=== PATIENT | male | born 1935 | race Caucasian/White ===

== ENCOUNTER 2020-08-18 07:30 | Day surgery (SDC) | payer MEDICARE ==
[~2020-08-18] VITALS: Ht 182.9 cm; Wt 82.7 kg
[~2020-08-18 07:30] MED LIST: ASPIR-LOW81 MG PO; CRESTOR20 MG PO; FLOMAX0.4 MG PO; FLOVENT DISKUS50 MCG INH; FOLIC ACID1 MG PO; HYDROCHLOROTH12.5 MG PO; PLAVIX75 MG PO; RANEXA500 MG PO; TENORMIN50 MG PO; VASOTEC20 MG PO
[2020-08-18] MEDS ORDERED: IBUPROFEN600 MG PO (10:34)
[2020-08-18] MEDS ORDERED: ACETAMINOPHEN500 MG PO (10:34)
[2020-08-18] MEDS ORDERED: OXYCODON-ACETA1 EAC2 PO (10:34)
--- NOTE | 2020-08-20 07:58 | OR ---
[facility] [address], [place] [address] Signed DATE OF OPERATION: 08/18/2020 SURGEON: Marquis Clark MD PREOPERATIVE DIAGNOSES: 1. Longstanding chronic left groin tinea cruris. 2. 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 POSTOPERATIVE DIAGNOSES: 1. Longstanding chronic left groin tinea cruris. 2. 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 PROCEDURES: 1. Wide resection of left groin squamous cell carcinoma, 14 x 18 cm. 2. Partial closure and application of wound VAC device. ANESTHESIA: Spinal, [place]. INDICATIONS: This 84-year-old white man is a patient of Dr. Kvng Ferrera. The patient is known to have longstanding tinea cruris bilaterally. Consultation with Dr. Alfaro, ultrasound applications specialist recommended terbinafine for bilateral tinea crura, but it had no beneficial effect. Biopsies performed in the left groin area for fungating soft tissue on July 01, 2020, which confirmed squamous cell carcinoma. Interpretation of pathology was by Dr. Araiza of [facility]. 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 scan performed at [facility] in December of 2019, showing no sign of regional adenopathy. The patient was initially referred to Dr. Irvin Soriano, who recommended go to [place] for definitive treatment. The patient did not want to travel and essentially self-referred for evaluation. He was found to have an exuberant fungating soft tissue mass of the left groin area extending onto the left hemiscrotum and posteriorly to some degree. The patient does have numerous medical problems including prior history of cardiac disease and so on. He lives alone and is . I have recommended wide resection of the offending problem with partial closure and probably application of wound VAC device ultimately to undergo skin grafting. A Electronically Signed By: MARQUIS CLARK MD 08/20/20 0758 PATIENT NAME: JANET JOHNSON JR OPERATIVE REPORT DATE OF : 33 REPORT #: [id number] PHYSICIAN: MARQUIS CLARK MD PCP: KVNG FERRERA MD REPORT IS CONFIDENTIAL AND NOT TO BE RELEASED WITHOUT AUTHORIZATION [facility] [address] [place] [address] Signed rotational flap for closure is a consideration, but under the circumstances, I think this may be the simplest most effective way for complete resection as well as definitive closure. The patient was not noted to have metastatic disease regionally or elsewhere. Special note, the patient was treated with Diflucan for the preceding two weeks, but will benefit on the contralateral groin, which has findings typical of tinea cruris, but without any neoplastic change. Additional treatment of that site will be required in the future as well. FINDINGS: The verruca form abnormality was quite obviously malignant on gross appearance. There is no sign of underlying adenopathy and full-thickness excision of skin and subcutaneous fat (Camper's fascia) was undertaken. Partial closure of the scrotum medially and the perineum inferiorly allowed for diminishment of the size of wound, for which the wound VAC device will be applied. A good seal with wound VAC was noted at completion of procedure. DESCRIPTION OF PROCEDURE: The patient was brought to the operating room, given a spinal anesthetic. His left leg was placed into a somewhat frog-leg configuration with support laterally and pressure padding. Photographs were taken. The genitalia were retracted medially with pink tape exposing well the area in question. The area was clipped and prepared with a chlorhexidine solution and draped sterilely. A margin of about 1 cm or more was made with a marker to guide excision. Incision was undertaken with a #15 blade through the dermis and using electrocautery wide resection undertaken, excising generous subcutaneous tissue, particularly in the areas with the largest amount of tumor burden. Entry into the left hemiscrotum was noted initially. The specimen was resected fully and measured approximately 14 x 9 cm. The specimen was oriented with sutures, a short stitch superior and long stitch laterally. The left hemiscrotal area was secured with interrupted 2-0 Vicryl to close the space created into the left hemiscrotum, which showed a normal-appearing testicle. Closure posteriorly was undertaken with interrupted 2-0 Vicryl in deep dermal layer as well as medially in the scrotal layer to diminish the size of defect, for which a wound VAC would be applied and subsequent skin grafting. Ultimately, a wound VAC was cut to appropriate size and applied in the usual way and providing a good strong seal. BLOOD LOSS: Electronically Signed By: MARQUIS CLARK MD 08/20/20 0758 PATIENT NAME: JANET JOHNSON OPERATIVE REPORT DATE OF : 34 REPORT #: [id number] PHYSICIAN: MARQUIS CLARK MD PCP: KVNG FERRERA MD REPORT IS CONFIDENTIAL AND NOT TO BE RELEASED WITHOUT AUTHORIZATION [address] [address] Signed Minimal. COMPLICATIONS: None. COUNTS: Sponge, needle, and instrument counts reported as correct x3. Marquis Clark MD JM/MODL /[id number] cc: Kvng Ferrera MD Copies: KVNG FERRERA MD ~ Electronically Signed By: MARQUIS CLARK MD 08/20/20 0758 PATIENT NAME: JANET JOHNSON OPERATIVE REPORT DATE OF : 34 REPORT #: [id number] PHYSICIAN: MARQUIS CLARK MD PCP: KVNG FERRERA MD REPORT IS CONFIDENTIAL AND NOT TO BE RELEASED WITHOUT AUTHORIZATION
--- NOTE | 2020-08-26 16:08 | PATH ---
[facility] [address], [place] [address] Signed SPECIMEN(S): A LEFT GROIN, MEDIAL THIGH SPECIMEN SOURCE: A. LEFT GROIN, MEDIAL THIGH CLINICAL HISTORY: Left groin and medial thigh skin cancer (long stitch lateral; short stitch superior). 84 year old man with left groin lesion initially treated with topical antifungals and subsequently biopsied as "verrucous cell carcinoma". FINAL PATHOLOGIC DIAGNOSIS: Skin, left groin/medial thigh, excision: - Extramammary Paget disease. - Tumor present at 12-6 o'clock and 9-12 o'clock margins. - Deep margins negative for tumor. COMMENT: Sections demonstrate an intraepidermal proliferation of malignant epithelioid cells growing in nests and sheets with areas of intraepidermal papillary formation. The tumor cells extend from the main tumor mass through the adjacent epidermis with a pagetoid spread. Dermal invasion or an underlying neoplastic process is not identified. Immunohistochemical stains (with appropriately staining controls) were performed. The tumor cells are positive for CK7, MADISON, GCDFP-15, and polyclonal CEA and are negative for Melan-A, CDX2, CK20, and p40. Overall, the combined morphologic and immunophenotypic profile is compatible with Extramammary Paget disease. As part of [facility]' Quality Improvement Program, this case was reviewed by another member of our pathology staff. NAL:cml:C NR MICROSCOPIC EXAMINATION: Histologic sections of all submitted blocks are examined by light microscopy. These findings, together with the gross examination, support the pathologic diagnosis. GROSS DESCRIPTION: The specimen, labeled "RT," and designated on the requisition "left groin and medial thigh skin cancer," is received in formalin and consists of an oriented skin excision with a short stitch marking PATIENT NAME: JANET OJHNSON JR PATHOLOGY DATE OF : 34 REPORT #: [id number] PHYSICIAN: NOEMI PATHOLOGY PCP: KVNG FRAIRE MD REPORT IS CONFIDENTIAL AND NOT TO BE RELEASED WITHOUT AUTHORIZATION [facility] [address], [place] [address] Signed the superior aspect, and a long stitch marking the lateral aspect (13.8 cm superior to inferior, 8.8 cm medial to lateral, and excised to a depth of 1.2 cm). There is a pink-carballo to brown-carballo nodular lesion on the epidermal surface (9.2 x 7.4 x 0.8 cm) and the remaining epidermal surface shows pink-carballo to white-carballo and hypopigmented skin. The superior stitch is designated 12 o'clock and the specimen is inked as follows: Blue = 12 o'clock to 3 o'clock Red = 3 o'clock to 6 o'clock Green = 6 o'clock to 9 o'clock Black = 9 o'clock to 12 o'clock [place] = Deep The mass is sectioned to reveal a brown-carballo to white-carballo, firm to friable cut surface and is grossly located 0.4 cm from the nearest (9 o'clock) margin, 0.6 cm from the nearest deep margin, and more than 1.0 cm from the remaining inked margins. The remaining cut surface shows pink-carballo to white-carballo skin with underlying yellow-carballo fatty tissue. Hat Lining Paster sections are submitted as follows: Cassette Summary: (A1-A2) Mass to nearest 9 o'clock and deep margins (A3-A5) 12 o'clock to 3 o'clock margin, shaved, en face (A6-A7) 3 o'clock to 6 o'clock margin, shaved, en face (A8) Remaining 6 o'clock to 9 o'clock margin, shaved, en face (A9-A10) 9 o'clock to 12 o'clock margin, shaved, en face (A11-A14) Mass with underlying soft tissue (A15-A16) Mass with adjacent hypopigmented skin AC (under the direct supervision of a pathologist) The Gross Description was prepared using a voice recognition system. The report was reviewed for accuracy; however, sound-alike word errors, addition and/or deletions may occur. If there is any question about this report, please contact Client Services. ADDITIONAL NOTES: Immunohistochemical and/or in situ hybridization studies were performed on this case with the appropriate positive controls that react as expected. This test was developed and its performance characteristics determined by [facility]. It has not been cleared or approved by the U.S. Food and Drug Administration. The FDA has determined that such clearance or approval is not necessary. This test is used for clinical purposes. It should not be regarded as investigational or for research. [facility] is certified under the PATIENT NAME: JANET JOHNSON PATHOLOGY DATE OF : 34 REPORT #: [id number] PHYSICIAN: NOEMI PATHOLOGY PCP: KVNG FRAIRE MD REPORT IS CONFIDENTIAL AND NOT TO BE RELEASED WITHOUT AUTHORIZATION [address] [address] Signed Clinical Laboratory Improvement Amendments of 1988 (CLIA) as qualified to perform high complexity clinical laboratory testing. PERFORMING LABORATORY: The technical component was performed by [facility], [address] [place] [id number] (Procedure Tech: Cathy Cruz MD; CLIA# [id number]). Professional interpretation was performed by [facility], [facility], [address] [place] [address] (CLIA# [id number]). Diagnostician: Allison Liang MD Pathologist Electronically Signed 08/26/2020 Copies: ~ PATIENT NAME: JANET JOHNSON ELISA PATHOLOGY DATE OF : 34 REPORT #: [id number] PHYSICIAN: NOEMI PATHOLOGY PCP: KVNG FRAIRE MD REPORT IS CONFIDENTIAL AND NOT TO BE RELEASED WITHOUT AUTHORIZATION
== END 2020-08-18 15:20 | disposition home or self-care (01) ==
LOC: DS 07:30
PROVIDERS: ATTEND Surgery
PROC: 0HBJXZZ Excision of Left Upper Leg Skin, External Approach (ICD-10-PCS; principal; 2020-08-18 08:15)
DX: C44.599 Other specified malignant neoplasm of skin of other part of trunk (principal); B35.6 Tinea cruris; I25.2 Old myocardial infarction; K21.9 Gastro-esophageal reflux disease without esophagitis; G43.909 Migraine, unspecified, not intractable, without status migrainosus; Z79.899 Other long term (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; Z79.82 Long term (current) use of aspirin; Z79.02 Long term (current) use of antithrombotics/antiplatelets; Z95.1 Presence of aortocoronary bypass graft; Z87.891 Personal history of nicotine dependence
CPT/HCPCS: 00400; 88305; 88341; 88342; J0690; J2001; J2250; J2704; J7121

== ENCOUNTER 2020-09-12 14:10 | Emergency (ER) | payer MEDICARE ==
[~2020-09-12] VITALS: Ht 182.9 cm; Wt 83.9 kg
[~2020-09-12 14:10] MED LIST changes: +ACETAMINOPHEN500 MG PO; +IBUPROFEN600 MG PO; +OXYCODON-ACETA1 EAC2 PO
[2020-09-12] MEDS ORDERED: ATORVASTATIN CA80 MG PO (14:54)
[2020-09-12] MEDS ORDERED: CLOPIDOGREL75 MG PO (14:54)
== END 2020-09-12 15:11 | disposition home or self-care (01) ==
LOC: ED 14:10
DX: Z48.817 Encounter for surgical aftercare following surgery on the skin and subcutaneous tissue (principal)

== ENCOUNTER 2020-11-17 11:23 | Emergency (ER) | payer MEDICARE ==
[~2020-11-17] VITALS: Ht 182.9 cm; Wt 79.4 kg
[~2020-11-17 11:23] MED LIST changes: +ATORVASTATIN CA80 MG PO; +CLOPIDOGREL75 MG PO
--- NOTE | 2020-11-17 12:10 | EKG ---
[facility] [address] [facility] [place] [address] Signed Sinus tachycardia with premature atrial complexes with aberrant conduction Left bundle branch block Abnormal ECG When compared with ECG of 17-AUG-2020 14:39, Significant changes have occurred Confirmed by ELSIE SOL MD ([id number]) on 11/17/2020 12:10:04 PM Electronically Signed By: ELSIE SOL MD 11/17/20 1210 PATIENT NAME: JANET JOHNSON JR Electrocardiogram DATE OF : 34 PHYSICIAN: ELSIE SOL MD REPORT #: [id number] REPORT IS CONFIDENTIAL AND NOT TO BE RELEASED WITHOUT AUTHORIZATION
== END 2020-11-17 17:07 | disposition short-term general hospital (02) ==
LOC: ED 11:23
DX: I21.4 Non-ST elevation (NSTEMI) myocardial infarction (principal); J18.9 Pneumonia, unspecified organism; Z20.822 Contact with and (suspected) exposure to COVID-19; E78.00 Pure hypercholesterolemia, unspecified; Z87.891 Personal history of nicotine dependence; Z88.8 Allergy status to other drugs, medicaments and biological substances; Z79.899 Other long term (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; Z79.82 Long term (current) use of aspirin
CPT/HCPCS: 71045; 80053; 83735; 83880; 84484; 85025; 85610; 93005; 93010; 96374; 96375; 99285-25; C9803; J0456; J0696; J1650; J7060; U0003

== ENCOUNTER 2021-03-27 15:58 | Emergency (ER) | payer MEDICARE ==
[~2021-03-27] VITALS: Ht 182.9 cm; Wt 79.4 kg
--- OUTSIDE RECORDS SUMMARY | 2021-03-27 16:00 | XMS ---
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 \F\ [facility] PHONE: [phone] YEE [facility] 08/08/2018-Current PHONE: [phone] Hugo has no Care Guidelines for this patient. E.DAdriano VISIT COUNT (12 MO.) [address] Darion Russell TOTAL 4 NOTE: Visits indicate total known visits. 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 TYPE: Cardiology DIAGNOSES: - Shortness of breath - NSTEMI - Presence of aortocoronary bypass graft - Hyperlipidemia, unspecified - Non-ST elevation (NSTEMI) myocardial infarction - Presence of coronary angioplasty implant and graft - Ischemic cardiomyopathy - Essential (primary) hypertension - Atherosclerosis of coronary artery bypass graft(s), unspecified, with other forms of angina pectoris [email or web address]
[2021-03-27] MEDS ORDERED: CARVEDILOL12.5 MG PO (16:34)
[2021-03-27] MEDS ORDERED: LIPO-FLAVONOID1 EACH PO (16:35)
[2021-03-27] MEDS ORDERED: NITROGLYCERIN12 GM NAS (16:37)
[2021-03-27] MEDS ORDERED: PLAVIX75 MG PO (16:37)
[2021-03-27] MEDS ORDERED: ISOSORBIDE MONO30 MG PO (16:37)
--- NOTE | 2021-03-28 20:11 | EKG ---
[facility] [address] [facility] [place] [address] Signed Sinus rhythm with 1st degree AV block Left bundle branch block Abnormal ECG Confirmed by ELSIE SOL MD ([id number]) on 03/28/2021 8:11:35 PM Electronically Signed By: ELSIE SOL MD 03/28/212010 PATIENT NAME: JANET JOHNSON JR Electrocardiogram DATE OF : 34 PHYSICIAN: ELSIE SOL MD REPORT #: [id number] REPORT IS CONFIDENTIAL AND NOT TO BE RELEASED WITHOUT AUTHORIZATION
== END 2021-03-27 21:29 | disposition home or self-care (01) ==
LOC: ED 15:58
DX: R55 Syncope and collapse (principal); E78.00 Pure hypercholesterolemia, unspecified; Z87.891 Personal history of nicotine dependence; Z88.8 Allergy status to other drugs, medicaments and biological substances; Z79.899 Other long term (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; Z79.82 Long term (current) use of aspirin; Z85.828 Personal history of other malignant neoplasm of skin
CPT/HCPCS: 71045; 71250; 80053; 81001; 83735; 84484; 85025; 93005; 93010; 96365; 99285-25; J3475; J7030

== ENCOUNTER 2021-05-29 09:17 | Emergency (ER) | payer MEDICARE ==
[~2021-05-29] VITALS: Ht 182.9 cm; Wt 79.4 kg
[~2021-05-29 09:17] MED LIST changes: +CARVEDILOL12.5 MG PO; +ISOSORBIDE MONO30 MG PO; +LIPO-FLAVONOID1 EACH PO; +NITROGLYCERIN12 GM NAS
--- OUTSIDE RECORDS SUMMARY | 2021-05-29 09:20 | XMS ---
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 \F\ [facility] PHONE: [phone] KVNG FRAIRE [facility] 03/29/2021-Current PHONE: [phone] HARISH VITALE Nurse Practitioner: Gerontology Current PHONE: [phone] NARINDER MARRERO Internal Medicine Current PHONE: [phone] Hugo has no Care Guidelines for this patient. [place] VISIT COUNT (12 MO.) 1 [facility] 4 [facility] TOTAL 5 NOTE: Visits indicate total known visits. 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 11/23/2020 12:30 [facility] TYPE: Emergency DIAGNOSES: - Other nonspecific abnormal finding of lung field - Viral pneumonia, unspecified - Shortness of Breath - Pulmonary hypertension, unspecified - Pneumonia, unspecified organism - Hypoxemia - Weakness 11/17/2020 11:23 [facility] [place] TYPE: Emergency COMPLAINT: - WEAKNESS, SOB DIAGNOSES: - Non-ST elevation (NSTEMI) myocardial infarction - care home (current) use of aspirin - Weakness - Other prison (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 - Pneumonia, unspecified organism - Pure hypercholesterolemia, unspecified - Personal history of nicotine dependence - Allergy status to other drugs, medicaments and biological substances 09/12/2020 14:11 [facility] TYPE: Emergency COMPLAINT: - WOUND CARE DIAGNOSES: - Encounter for surgical aftercare following surgery on the skin and subcutaneous tissue INPATIENT VISIT TRACKING (12 MO.) 11/17/2020 18:[facility] TYPE: Cardiology DIAGNOSES: - Shortness of breath - NSTEMI - Presence of aortocoronary bypass graft - Hyperlipidemia, unspecified - Non-ST elevation (NSTEMI) myocardial infarction - Presence of coronary angioplasty implant and graft - Ischemic cardiomyopathy - Essential (primary) hypertension - Atherosclerosis of coronary artery bypass graft(s), unspecified, with other forms of angina pectoris [id number]
[2021-05-29] MEDS ORDERED: HYDROCHLOROTHIA25 MG PO (13:39)
--- NOTE | 2021-05-30 17:13 | EKG ---
[facility] [address] [facility] [place] [address] Signed Sinus rhythm with 1st degree AV block with premature atrial complexes Left bundle branch block Abnormal ECG When compared with ECG of 27-MAR-2021 16:01, premature atrial complexes are now present Questionable change in QRS axis T wave inversion now evident in Inferior leads T wave inversion now evident in Lateral leads Confirmed by ELSIE SOL MD ([id number]) on 05/30/2021 5:12:49 PM Electronically Signed By: ELSIE SOL MD 05/30/21 1713 PATIENT NAME: JANET JOHNSON Electrocardiogram DATE OF : 34 PHYSICIAN: ELSIE SOL MD REPORT #: [id number] REPORT IS CONFIDENTIAL AND NOT TO BE RELEASED WITHOUT AUTHORIZATION
== END 2021-05-29 14:21 | disposition home or self-care (01) ==
LOC: ED 09:17
DX: D64.9 Anemia, unspecified (principal); I50.9 Heart failure, unspecified; E78.00 Pure hypercholesterolemia, unspecified; Z87.891 Personal history of nicotine dependence; Z88.8 Allergy status to other drugs, medicaments and biological substances; Z79.899 Other long term (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; Z79.82 Long term (current) use of aspirin
CPT/HCPCS: 70450; 71045; 80053; 81001; 83735; 84484; 85025; 93005; 93010; 99285-25; J7040

== ENCOUNTER 2021-06-03 11:20 | Inpatient (IN) | payer MEDICARE ==
[~2021-06-03] VITALS: Ht 182.9 cm; Wt 83.8 kg
[~2021-06-03 11:20] MED LIST changes: +HYDROCHLOROTHIA25 MG PO
--- OUTSIDE RECORDS SUMMARY | 2021-06-03 11:24 | XMS ---
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 \F\ [facility] PHONE: [phone] KVNG FRAIRE [facility] 03/29/2021-Current PHONE: [phone] HARISH VITALE Nurse Practitioner: Gerontology Current PHONE: [phone] NARINDER MARRERO Internal Medicine Current PHONE: [phone] Hugo has no Care Guidelines for this patient. iTerra VISIT COUNT (12 MO.) 1 [facility] 5 [facility] [place] TOTAL 6 NOTE: Visits indicate total known visits. 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 03/27/2021 15:59 [facility] TYPE: Emergency COMPLAINT: - LOC DIAGNOSES: - Syncope and collapse - Other 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 medical 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 (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 - Personal history of nicotine dependence - Personal history of other malignant neoplasm of skin - Pure hypercholesterolemia, unspecified - Allergy status to other drugs, medicaments and biological substances - 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 11/23/2020 12:30 [facility] TYPE: Emergency DIAGNOSES: - Other nonspecific abnormal finding of lung field - Viral pneumonia, unspecified - Shortness of Breath - Pulmonary hypertension, unspecified - Pneumonia, unspecified organism - Hypoxemia - Weakness 11/17/2020 11:23 [facility] TYPE: Emergency COMPLAINT: - WEAKNESS, SOB DIAGNOSES: - Non-ST elevation (NSTEMI) myocardial infarction - 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 TYPE: Cardiology DIAGNOSES: - Shortness of breath - NSTEMI - Presence of aortocoronary bypass graft - Hyperlipidemia, unspecified - Non-ST elevation (NSTEMI) myocardial infarction - Presence of coronary angioplasty implant and graft - Ischemic cardiomyopathy - Essential (primary) hypertension - Atherosclerosis of coronary artery bypass graft(s), unspecified, with other forms of angina pectoris [email or web address]
--- NOTE | 2021-06-03 15:10 | NUR ---
REPORT RECEIVED FROM SILVANO BAHENA. AWAITING PTS ARRIVAL FROM FLOOR.
--- NOTE | 2021-06-03 15:30 | NUR ---
NOTIFIED BY DR MCCOLLUM PT HAS HAD FREQUENT FALLS AND SEVERAL TRIPS TO THE ER. HE DOES NOT FEEL SAFE AT HOME AND WOULD LIKE ADMISSION TO [facility].
[2021-06-03] MEDS ORDERED: POTASSIUM CHLO20 ME1 PO (15:54)
--- NOTE | 2021-06-03 15:56 | NUR ---
PT ARRIVED TO MED/SURG FLOOR. PT TRANSFERED TO BED WITH 4 PERSON ASSIST. PT STATES HE IS UNABLE TO TRANSFER SELF. PT REPORTS NEED TO VOID. VOIDS 200ML IN TO URINAL WHILE RESTING IN BED. PT STATES HE IS NOT STRONG ENOUGH TO STAND AT THIS TIME. PT DENIES PAIN AND NAUSEA. DOMONIQUE, CASE MANAGEMENT TO BEDSIDE TO MEET WITH PT. PT ALERT AND ORIENTED AND ANSWERING QUESTIONS APPROPRIATLY. 1500 [facility] LABS STILL DUE. 10ML WASTE FROM LEFT AC IV AND 5ML BLOOD DRAW. LABS SENT PER MD ORDER. ASSESSMENT DONE: PT ORIENTED TO ALL, REPORTS NUMBNESS AND TINGLING IN FEET PER BASELINE STATING "IT CAME ALONG 5 YEARS AGO." WEAKNESS REMAINS IN LEG AND ARMS. PT ABLE TO LIFT LEGS OFF OF BED. STRONG JANET AND PLANTAR FLEXTION NOTED. CRACKELS NOTED THROUGHOUT LUNGS. PT DENIES COUGH OR SPUTUM PRODUCTION. PROMINANT HEART MURMUR HEARD. PT STATES BASELINE. +3 PITTING EDEMA IN BILATERAL LEGS (KNEES TO ANKLES), +4 PITTING EDEMA IN FEET. +1 PITTING EDEMA IN UPPER LEGS (KNEES TO HIPS). SKIN VERY PALE, TAUGHT IN PLACES (FEET AND KNEES). MULTIPLE BRUISES OVER ARMS. ABRAISONS TO BACK OF HEAD X2 NOTED: 1. SCAP BEHIND RIGHT EAR MEASURING 2.5CM BY 1CM, DRY, INTACT, NO DRESSING 2. SCAP TO POSTERIOR SCALP MEASURING 3CM BY 0.5CM, DRY, INTACT, NO DRESSING 3. OLD SKIN TEAR NOTED TO RIGHT MID FORARM, MEASURING 2CM BY 3CM, DRY, INTACT, NO DRESSING. 4. BURISES OVER ENTIRETY OF BILATERAL ARMS. 5. BRUISE MEASURING 3CM CIRCUMFRENTIALLY TO MIDLINE MID BACK. 6. BRUISE TO LOWER NECK BETWEEN SHOULDER BLADES MEASURING 3CM BY 2CM. 7. WOUND NOTED TO LEFT GROIN, LEAKING WHITE FLUID, WOUND MEASURES 4CM BY 3CM. PT STATES THIS WOUND IS "FROM RADIATION" AND HE SEES DR. ASHTON FOR "A MASS IN MY GROIN. WOUND CLEAND WITH WATER. WOUND BASE WHITE WITH SMALL AMOUNTS OF GRANULATION TISSUE. THIS RN REMAIN IN ROOM WITH PT FOR EVALUATION AND ADMISSION INTAKE. CALL LIGHT USE INSTRUCTION GIVEN. PT DEMONSTRATES UNDERSTANDING. BED RAILS UP.
--- NOTE | 2021-06-03 16:10 | NUR ---
PT ARRIVED TO FLOOR. IN AND SPOKE WITH PT. HE STATES HE HAD SURGERY APPROX. IN OCT FOR MASS IN HIS GROIN. HE SPENT 2 MONTHS IN REHAB AND DISCHARGED TO HOME IN JANUARY. STATES HE HAS REMAINED WEAK AND UNSTEADY SINCE THIS TIME. HE LIVES ALONE AND HAS ATTEMPTED TO REMAIN INDEPENDENT BUT IS UNABLE TO DO SO. HE LIVES IN A 1 STORY HOME, WITH 0 STEPS. 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 HE USES A 4WWW, SHOWER CHAIR, AND A WC AT TIMES. DR FRAIRE IS HIS PCP AND HE USES [facility] FOR HIS PHARMACY. HE STATES HE HAS MADE ARRANGEMENT TO MOVE INTO [facility]. HE STATES THIS HAS BEEN PUT ON HOLD. HE WOULD LIKE PLACEMENT AT [facility], INFORMED THEY ARE NOT TAKING PTS AT THIS TIME. HE IS ON A MANAGED MEDICARE AND I [facility]EV[facility] ARE THE ONLY SNFS IN NETWORK IN THIS AREA. HE WOULD PREFER [facility]. ATTEMPTED TO CALL GALLO AND SHE HAS GONE HOME. CHART FAXED: FACE SHEET, ER NOTE, H&P, MEDICATION LIST, AND -COVID TEST WITH DATES OF VACCINATION OF MODERNA. CALLED AND SPOKE WITH ANTOINETTE AND PATTIE FROM [facility]. PT WAS TO BE EVALUATED TOMORROW. ROOM WILL NOT BE READY FOR AT LEAST 1 WEEK AND THEY WOULD PREFER HE GO TO REHAB FOR STRENGTHENING PRIOR TO ADMISSION.
[2021-06-03] MEDS ORDERED: FUROSEMIDE20 MG PO (16:45)
[2021-06-03] MEDS ORDERED: DEXILANT30 MG PO (16:45)
[2021-06-03] MEDS ORDERED: AMLODIPINE BESYL5 MG PO (16:45)
--- NOTE | 2021-06-03 16:59 | NUR ---
ADMISSION INTAKE COMPLETED. PHARMACIST TO BEDSIDE TO REVIEW MEDICATIONS WITH PT. ORDERED MEDICATIONS GIVEN. DINNER ORDER PLACED. PT RESTING IN BED. CONTINUES TO DENY PAIN AND NAUSEA. MESSAGE SENT TO MD TO INQUIRE IF FLUID RESTRICION IS NEEDED. NO ADDITIONAL REQUESTS OR COMPLAINTS. CALL LIGHT WITHIN REACH. BED RAILS UP.
[2021-06-03] MEDS ORDERED: PANTOPRAZOLE SO40 MG PO (17:20)
[2021-06-03] MEDS ORDERED: VITAMIN C500 M1 PO (17:22)
[2021-06-03] MEDS ORDERED: IRON325 M1 PO (17:23)
--- NOTE | 2021-06-03 17:24 | NUR ---
MED REC COMPLETE
--- NOTE | 2021-06-03 17:32 | NUR ---
THIS RN TO ROOM TO CHECK ON PT. DINNER ARRIVED. HEAD OF BED ELEVATED TO 40 DEGREES FOR DINNER. PT DECLINES TIME UP TO CHAIR. PT ASSISTED WITH TRAY SET UP. PT VOIDS 200ML CLEAR YELLOW URINE INTO URINAL. PT DENIES ADDITIONAL REQUESTS OR COMPLAINS. CALL LIGHT WITHIN REACH. BED RAILS UP.
--- NOTE | 2021-06-03 17:44 | NUR ---
PT ARRIVED TO MED/SURG THIS SHIFT. HERE FOR HYPONATREMIA. PT 1-2 PERSON ASSIST. ABLE TO MACHINE ASSEMBLER ER BUT HAS NOT AGREED TO TIME OUT OF BED SO FAR THIS SHIFT. PT REPOTS BASELINE WALKER USE AT HOME. MULTIPLE FALLS RECENTLY, BRUISES AND ABRASIONS, WOUNDS OVER SKIN (SEE WINDOW TREATMENT INSTALLER NOTE). PT TOLERATING REGULAR DIET WITH GOOD APPITITE. PT ALERT AND ORIENTED. CRACKELS THROUGH OUT LUNGS. PROMINENT HEART MURMUR. REPEAT SODIUM LABS DONE. MG RIDER GIVEN THIS SHIFT. CHEST X RAY AND EKG DONE IN ER. PT VOIDING QUANTITY SUFFICIENT. PT USES CALL LIGHT AND MAKES NEEDS KNOWN.
--- NOTE | 2021-06-03 18:17 | NUR ---
THIS RN TO ROOM TO CHECK ON PT. PT FINISHED WITH DINNER, DENIES NAUSEA AND STATES HE HAS "A REALLY HAPPY STOMACH" AFTER EATING. PT DENIES PAIN. NO ADDITIONAL REQUESTS OR COMPLAINTS. CALL LIGHT WITHIN REACH. BED RAILS UP.
--- NOTE | 2021-06-03 18:54 | NUR ---
PTS COUSIN SUZIE, ARRIVED TO VISIT WITH PT. PT REQUESTS WARM BLANKETS AND INCREASED TEMPERATURE IN ROOM. ROOM TEMPERATURE INCREASED TO 75 DEGREES. WARM BLANEKETS PROVIDED. NO ADDITIONAL REQUESTS OR COMPLAINTS. CALL LIGHT WITHIN REACH.
--- NOTE | 2021-06-03 19:30 | NUR ---
RECEIVED REPORT, PT IS RESTING WITH EYES CLOSED. RR IS EVEN AND NONLABORED. CALL LIGHT IS CLOSE.
--- NOTE | 2021-06-03 20:17 | EKG ---
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
--- NOTE | 2021-06-03 20:30 | NUR ---
PT CALLED IV ALARMING. NEW FLUIDS NOW, INFUSING. REMOTE GIVEN, LIGHTS OFF.
--- NOTE | 2021-06-03 21:40 | NUR ---
IN ROOM TO ASSESS PT AND ADMINISTER MEDS. PT STATES THAT HE SAW HIS DR KNOX AM AND DR FRAIRE CHANGED HIS DOSE OF COREG TO 6.25 MG D/T LOW BP. ADMINISTERED ONLY 6.25MG AND WILL NOTIFY/VERIFY WITH DR MCCOLLUM. PT DENIES SOB AND TALKED WITH PT ABOUT FLUID OVERLOAD SX AND TO LET US KNOW IF SHE HAS ANY TROUBLE BREATHING OR SOB. PT DENIES PAIN AND NAUSEA. CALL LIGHT IS CLOSE AND PT DENIES FURTHER NEEDS. IV IS INFUSING FINE.
--- NOTE | 2021-06-03 22:11 | NUR ---
PT CALLED TO HAVE URINAL EMPTIED, PT DENIES FURTHER NEEDS. CALL LIGHT IS CLOSE.
--- NOTE | 2021-06-03 23:26 | NUR ---
SODIUM LAB RESULTS SEEN BY DR MCCOLLUM AND IV FLUIDS DC'D. IV IS NOW SL. PT IS RESTING WITH EYES CLOSED. RR IS EVEN AND NONLABORED. CALL LIGHT IS CLOSE.
--- NOTE | 2021-06-04 01:21 | NUR ---
PT IS RESTING WITH EYES CLOSED, RR IS EVEN AND NONLABORED. CALL LIGHT IS CLOSE.
--- NOTE | 2021-06-04 02:50 | NUR ---
IN WITH RN TO ASSIST WITH BED CHANGE, 2PA PIVOT PT TO CHAIR AT BEDSIDE THEN BACK TO BED, NEW LINENS AND A CHUX IN PLACE NO FURTHER NEEDS AT THIS TIME
--- NOTE | 2021-06-04 03:09 | NUR ---
IN ROOM TO GET PT'S VS AND ASSESS PT. PT STATES THE FOAM MATTRESS MAKES HIM SWEAT. 2PA WITH HELP OF ESTRELLA STEPHENSON TO CHAIR AND CHANGED BEDDING, PUT EXTRA BLANKETS ON MATTRESS PER PT REQUEST. HE IS NOW BACK IN BED WITH CLEAN GOWN AND BLANKETS. LEGS ARE ELEVATED ON PILLOWS. PT REPORTS A 4/10 HEADACHE, ADMINISTERED TYLENOL. PT DENIES SOB. CALL LIGHT IS CLOSE AND PT IS EATING PUDDING AT THIS TIME.
--- NOTE | 2021-06-04 04:55 | NUR ---
PT IS RESTING WITH EYES CLOSED, RR IS EVEN AND NONLABORED. CALL LIGHT IS CLOSE.
--- NOTE | 2021-06-04 08:02 | NUR ---
RECEIVED REPORT FROM DAY SHIFT RN. PATIENT IS RESTING IN BED WITH EYES CLOSED, RR 17. CALL LIGHT IN REACH.
--- NOTE | 2021-06-04 08:25 | NUR ---
OT WORKING WITH PATIENT RIGHT NOW. NO NEEDS NOTED.
--- NOTE | 2021-06-04 08:30 | NUR ---
PT IN BED. THIS ORACLE AGILE PLM CONSULTANT TOOKE PT'S BREAKFAST ORDER. GAVE PT A WARM WASHCLOTH FOR FACE. EMPTIED URINAL. WHITEBOARD UPDATED. CALL LIGHT WITHIN REACH. NO FURTHER NEEDS AT THIS TIME.
--- NOTE | 2021-06-04 09:24 | NUR ---
PATIENT RECEIVING AN ECHO A THIS TIME. PAUL RETURN FOR MORNING MEDICATIONS
--- NOTE | 2021-06-04 09:30 | NUR ---
CALLED [facility] AND SPOKE WITH GALLO. SHE STATES THEY GOT CHART. THEY ARE NOT SURE YET WHAT THE SNF NEED IS. DISCUSSED HIS WEAKNESS DUE TO CHRONIC ISSUES AND FALLS. DISCUSSED THAT TODAY THERAPY WILL SEE HIM AND WE WILL SEND NOTES WHEN THEY ARE PUT IN CHART. SHE STATES THEY WOULD HAVE TO WAIT TILL MONDAY PROBABLY.
--- NOTE | 2021-06-04 10:26 | NUR ---
PATIENT ASSESMENT COMPLETED. PATIENT REPOSITIONE DIN BED. VITALS TAKEN AND RECORDED. INTAKE AND OUPUT RECORDED. PATIENT RATES PAIN 2/10 "KIND ALL OVER". PATIENT DENIES THE NEED FOR PAIN MEDICATION AT THIS TIME. PATIENT IS ON RA. SL AND IV FLUSHES WELL. PATIENT GIVEN SHCEDULED MEDICATION PER ORDER. ALL QUESTIONS ANSWERED. PATIENT ATE 100% OF BREAKFAST. NO FURTHER NEEDS. NOTED. CALL LIGHT IN REACH.
--- NOTE | 2021-06-04 12:39 | NUR ---
PATIENT IS AWAKE AND EATING LUNCH. PATIENT DENIES ANY NEEDS AT THIS TIME. CALL LIGHT IN REACH.
--- NOTE | 2021-06-04 13:00 | NUR ---
SPOKE WITH PATIENT IN ROOM. PATIENT STATES HE STILL THINKS HE IS TOO WEAK TO GO HOME. HE DOES NOT FEEL SAFE. STATES HE DID REHAB IN JANUARY AND IT HELPED A LOT. PATIENT TALKS AT LENGTH ABOUT HIS MEDICAL CONDITIONS AND ISSUES WITH FAMILY. HE FEELS HE HAS GOOD SUPPORT FROM HIS COUSINS. HE IS FINE WITH GOING TO [facility] IF THEY WILL TAKE HIM. HE STATES HE DID HAVE ONE THERAPY TODOAY, BUT DOESN'T KNOW WHEN THE OTHER IS COMING. SPOKE [facility] PT AND THEY WILL SEE PATIENT LATER THIS AFTERNOON DUE TO HIGH PATIENT NEEDS TODAY.
--- NOTE | 2021-06-04 16:38 | NUR ---
PATIENT IS RESTING IN BED. PATIENT REPOSITIONED IN BED. PATIENTS URINAL EMPTIED. PATIENT DENIES ANY FURTHER NEEDS. CALL LIGHT IN REACH.
--- NOTE | 2021-06-04 17:35 | NUR ---
PT NOTES NOT FOUND. FAXED TO [facility], SENT OT EVAL. FAX CONFIRMATION RECEIVED AT 3121.
--- NOTE | 2021-06-04 18:56 | NUR ---
PATIENTS CHUCKS CHANGED. DIANELYS CARE COMPLETED. PATIENT REPOSITIONED IN BED. NIECE IN THE ROOM. NO NEEDS NOTED. CALL LIGHT IN REACH.
--- NOTE | 2021-06-04 19:46 | NUR ---
REPORT RECEIVED FROM DAY SHIFT RN. PT LYING IN BED RESTING WITH EYES CLOSED. RESPIRATIONS EVEN. NO APPARENT DISTRESS. CALL LIGHT IN REACH. WHITE BOARD UPDATED.
--- NOTE | 2021-06-04 21:30 | NUR ---
EVENING ASSESSMENT COMPLETE. SCHEDULED MEDS ADMINISTERED PER EMAR. PT DENIES PAIN OR NAUSEA. DENIES SOB. CRACKLES HEARD IN LUNG BASES. SpO2 99% ON RA. RESPIRATIONS EVEN. PT VOID 400 ML CLEAR YELLOW URINE. EVENING SNACK PROVIDED. ASSISTED TO REPOSITION IN BED. WARM BLANKET GIVEN. PT DENIES QUESTIONS OR CONCERNS. CALL LIGHT IN REACH.
--- NOTE | 2021-06-04 23:49 | NUR ---
PT RESTING IN BED WITH EYES CLOSED. RESPIRATIONS EVEN. CALL LIGHT IN REACH.
--- NOTE | 2021-06-05 02:58 | NUR ---
PT IN BED RESTING WITH EYES CLOSED, NO APPARENT DISTRESS.
--- NOTE | 2021-06-05 06:15 | NUR ---
ASSESSMENT COMPLETE. RADIATION BURN IN LEFT GROIN AREA (PICS IN CHART) CLEANSED WITH SALINE AND ALLEVYN PLACED. PT REPOSITIONED IN BED TO RIGHT SIDE WITH PILLOWS. VS AND I&O COMPLETE. PT DENIES PAIN OR SOB. REPORTS HE SLEPT WELL. LIGHTS DIMMED FOR FURTHER REST UPON REQUEST. CALL LIGHT IN REACH.
--- NOTE | 2021-06-05 08:30 | NUR ---
REPORT RECEIVED FROM NIGHT RN AND PT. CARE RESUMED. PT. IS ALERT AND ORIENTED AND PLEASANT. ON AND 02 SAT. IS 99%. TRACE EDEMA PRESENT BLE AND +2 PITTING EDEMA IN FEET. ALLEVYN INTACT X2 ON LOWER BACK AND ONE IN PLACE ON LEFT GROIN. LEFT GROIN IS REDDENED. PT. DENIES PAIN. IV SITE WNL AND FLUSHES WELL. DISCUSSED SAFETY, MEDS AND CURRENT ILLNESS. PT. LEFT RESTING WITH CALL LIGHT IN REACH.
--- NOTE | 2021-06-05 10:43 | NUR ---
PT. UP TO THE COMMODE WITH P.T. AND HAD A LARGE, HARDENED BM. PT. CLEANED AND ASSISTED BACK TO BED WITH 2PA.
--- NOTE | 2021-06-05 17:24 | NUR ---
ROUNDING ON PT. HE IS UP IN THE CHAIR EATING DINNER. URINAL EMPTIED. PT DENIED FURTHER NEED
--- NOTE | 2021-06-05 19:48 | NUR ---
REPORT RECEIVED FROM DAY SHIFT RN. PT LYING IN BED RESTING WITH EYES CLOSED. RESPIRATIONS EVEN. WHITE BOARD UPDATED. CALL LIGHT IN REACH.
--- NOTE | 2021-06-05 21:00 | NUR ---
CALL LIGHT ANSWERED. PT INCONTINENT OF LARGE AMOUNT LOOSE STOOL. DIANELYS CARE DONE BY STAFF. CLEAN BRIEF PLACED. EVENING ASSESSMENT COMPLETE. SCHEDULED MEDS ADMINISTERED PER EMAR. PT DENIES PAIN OR SOB. DENIES NAUSEA. LEFT GROIN AREA WITH RADIATION BURN CLEANSED AND LEFT OPEN TO AIR. PT UP IN BED TO DO PM CARES. EVENING SNACK PROVIDED. NO FURTHER NEEDS. CALL LIGHT IN REACH.
--- NOTE | 2021-06-05 23:45 | NUR ---
CALL LIGHT ANSWERED. PT INCONTINENT OF URINE AND LARGE AMOUNT SOFT STOOL. DIANELYS CARE DONE. PT SKIN BECOMING EXCORIATED. BARRIER CREAM AND CLEAN BRIEF APPLIED. PT REPOSTIONED TO LEFT SIDE WITH PILLOWS. WARM BLANKETS PROVIDED. PT WITHOUT FURTHER NEEDS. CALL LIGHT IN REACH.
--- NOTE | 2021-06-06 02:15 | NUR ---
PT RESTING IN BED WITH EYES CLOSED, NAD.
--- NOTE | 2021-06-06 04:19 | NUR ---
PT INCONTINENT OF LARGE AMOUNT OF URINE. ASSISTED [facility] DIANELYS CARE. CLEAN BRIEF IN PLACE. PT REPORTS PHLEGM IN THROAT. OCCASIONAL LOOSE COUGH NOTED. HOB ELEVATED. ENCORAGED PT TO COUGH AND DEEP BREATH. PT RECEPTIVE AND WAS ABLE TO CLEAR THROAT. FRESH WATER PROVIDED. BACK RUB PROVIDED. ASSISTED PT TO REPOSITION IN BED. NO FURTHER NEEDS. CALL LIGHT WITHIN REACH.
--- NOTE | 2021-06-06 07:45 | NUR ---
REPORT RECEIVED FROM NIGHT RN AND PT. CARE RESUMED. PT. IS ALERT AND ORIENTED. HE DENIES PAIN. AMBULATED WITH FWW AND 1PA TO THE CHAIR. CRACKLES PRESENT IN RLL. PT. ON RA AND O2 SAT IS 99%. +1 EDEMA PRESENT IN FEET. RT. GROIN RADIATION WOUND IS OPEN TO AIR AND MOIST WITH MILKY DRAINAGE. ATTENDS IN PLACE AND PT. STATES HE WAS INCONTINENT OVERNIGHT. DISUSSED POC AND MED. PT. LEFT RESTING IN CHAIR WITH CALL LIGHT IN REACH.
--- NOTE | 2021-06-06 14:59 | NUR ---
PATIENT EDUCATED ABOUT BLOOD ADMIN. ALL QUESTIONS ANSWERED. 1ST UNIT OF PRBC STARTED. NO REACTION NOTED. VITALS STABLE.
--- NOTE | 2021-06-06 16:06 | NUR ---
ROUNDING ON PATIENT. HE IS RESTING WITH EYES CLOSED. BREATHING UNLABORED. PRBCS TRANSFUSING.
--- NOTE | 2021-06-06 16:41 | NUR ---
PT. USED CALL LIGHT APPROPRIATELY FOR ASSISTANCE WITH IV BEEPING. PRBC STILL INFUSING AND MORE TIME ADDED. PT. STATES HE FEELS WELL AND DENIES FURTHER NEED.
--- NOTE | 2021-06-06 17:27 | NUR ---
1 OF PRBC INFUSION COMPLETED. VITALS STABLE.
--- NOTE | 2021-06-06 19:20 | NUR ---
RECEIVED REPORT FROM ANSELMO SCHAEFER ABOUT PATIENT. PATIENT IS RECEIVING SECOND UNIT OF PRBCS FOR HIS HEMOGLOBIN OF 7.5. PATIENT'S FAMILY MEMBER AT BEDSIDE. PATIENT IS DENYING ANY NEEDS AT THIS DIANDRA. WILL BE BACK IN TO ASSESS PATIENT AND OBTAIN VITALS AFTER BLOOD TRANSFUSION IS COMPLETE. CALL LIGHT IN REACH.
--- NOTE | 2021-06-06 19:27 | NUR ---
PATIENT WANTED TO TAKE A SHOWER THIS LATE THIS AFTERNOON THE REASON HE COULDN'T HAVE IT IS BECAUSE HE WAS GETTING BLOOD.
--- NOTE | 2021-06-06 20:44 | NUR ---
PATIENT DECLINED OFFER FOR SHOWER TONIGHT. VISITOR HAD COME TO NURSE STATION AND STATED THAT PATIENT HAD "NOT HAD A BATH OR SHOWER FOR DAYS" PATIENT OFFERED BY THIS RN AND ARMANDO RN BUT WISHES TO DO SO TOMORROW DUE TO PATIENT WANTING TO GET REST.
--- NOTE | 2021-06-06 20:44 | NUR ---
IN ROOM TO DO PATIENT'S ASSESSMENT AND OBTAIN POST TRANSFUSION VITALS. PATIENT COMPLAINS OF 4/10 HEADACHE WHICH TYLENOL WAS GIVEN SEE EMAR. PATIENT TOOK HIS OTHER NIGHT TIME MEDS. PATIENT HAD SOME SOFT DRIED STOOL TO DIANELYS AREA THIS CLEANSED WITH CLEANSING WIPES AND BARRIEER CREAM APPLOIED TO EXCORIATED AREA BETWEEN BUTTOCK AND TO GROIN.
--- NOTE | 2021-06-06 22:35 | NUR ---
IN ROOM TO REASSESS PATIENT'S HEAD PAIN. PATIENT IS ASLEEP, LAYING IN SUPINE POSITION. PATIENT IS SNORING, RESPIRATIONS EVENA ND UNLABORED. CALL LIGHT IN REACH.
--- NOTE | 2021-06-06 23:57 | NUR ---
CHECKED ON PATIENT, HE IS ASLEEP, SNORING, RESPIRATIONS EVEN AND UNLABORED. CALL LIGHT IN REACH.
--- NOTE | 2021-06-07 01:38 | NUR ---
PATIENT CONTINUES TO SLEEP WHEN THIS RN WENT TO CHECK ON HIM. RASPIRATIONS ARE EVEN AND UNLABORED. CALL LIGHT IN REACH.
--- NOTE | 2021-06-07 03:20 | NUR ---
IN TO CHECK ON PATIENT. HE IS STIL SLEEPING BUT HAS MOVED TOWARD HIS RIGHT SIDE. CALL LIGHT IN REACH. RESPIRATIONS EVEN AND UNLABORED.
--- NOTE | 2021-06-07 06:04 | NUR ---
IN ROOM DOING PATIENT'S VITALS AND ASSESSMENT. PATIENT DENIES PAIN OR NAUSEA. STATES HE GOT SOME "GOOD SLEEP" DENIES ANY OTHER NEEDS. PATIENT REPORTS HE HAS ORDERED HIS OWN BREAKFAST. CALL LIGHT IN REACH. HAS USED URINAL TO VOID, NO BM.
--- NOTE | 2021-06-07 06:37 | NUR ---
PATIENT HAS HAD A RESTFUL NIGHT, SLEPT MOST OF IT. PATIENT WOULD LIKE TO HAVE A SHOWER/BATH TODAY REPORTS HE HAS NOT HAD ONE FOR "DAYS" PATIENT WAS UNABLE TO HAVE IT YESTERDAY DUE TO BLOOD TRANSFUSION THEN WANTED TO WAIT TIL TODAY IT WAS "LATE" WHEN BLOOD WAS COMPLETE. PATIENT WAS GIVEN TYLENOL FOR A HEADACHE DURING THE NIGHT WHICH HAS IMPROVED. PATIENT USING URINAL TO VOID, HAD A BM.
--- NOTE | 2021-06-07 07:27 | NUR ---
REPORT RECIEVED FROM NETWORKING TECHNICIAN RNJAMAL.
--- NOTE | 2021-06-07 07:41 | NUR ---
MORNING ASSESSMENT DONE. PATIENT UP TO CHAIR FOR BREAKFAST, DENIES PAIN OR NAUSEA.
--- NOTE | 2021-06-07 09:17 | NUR ---
OCCUPATIONAL THERAPIST IN TO WORK WITH PATIENT, HELP PATIENT SHOWER.
--- NOTE | 2021-06-07 10:35 | NUR ---
SPOKE WITH [facility] AT [facility]. SHE STATES THEY DO NOT THINK PATIENT NEEDS SNF BY NOTES. DISCUSSED I WILL SEND PT NOTE FROM [facility], BUT IN READING IT WITH HER IT LOOKS LIKE HOME HEALTH IS MORE APPROPRIATE. UPDATED DR WALTON/STAFF. CALLED [facility] AND SPOKE WITH MICHAEL WHO HAD BEEN WORKING WITH PATIENT PRIOR TO ADMIT ON MOVING TO FACILITY. DISCUSSED HE MAY DISCHARGE STRAIGHT TO HOME HEALTH NEEDS. SHE STATES SHE CAN COME TOMORROW AT 9AM TO DO FULL ASSESSMENT. SPOKE WITH PATIENT IN ROOM. PATIENT THINKS HE IS DOING BETTER, BUT STILL FEELS FAIRLY WEAK. DISCUSSED THAT HE MAY NOT NEED SNF AND [facility] CAN COME TOMORROW MORNING FOR ASSESSMENT AND HE POSSIBLY CAN GO THERE WITH HOME HEALTH. PATIENT IS AGREEABLE TO THIS. HE STATES HIS FAMILY CAN HELP GET HIS THINGS MOVED. PATIENT HAS NO QUESTIONS OR CONCERNS AT THIS TIME. DR WALTON/STAFF UPDATED.
--- NOTE | 2021-06-07 10:56 | NUR ---
Pt was in bed with eyes closed and appeared to be sleeping. Did not awaken pt. Said quiet prayer for healing.
--- NOTE | 2021-06-07 11:37 | NUR ---
REPORT RECEIVED, CARE ASSUMED. PT RESTING IN BED AWAKE AND COOPERATIVE. DENIES DISCOMFORTS OR NEEDS OF. FRESH H20 AT BEDSIDE WELL CALL LIGHT.
--- NOTE | 2021-06-07 11:40 | NUR ---
FAXED PT NOTES TO [facility] TO COMPLETE REFERRAL PACKET. NOTES DO REFLECT PATIENT NEEDS REHAB, BUT PROBABLY HOME HEALTH CAN BE USED. FAX CONFIRMATION RECEIVED 06/07/21 [id number].
--- NOTE | 2021-06-07 13:42 | NUR ---
pt up to the chair for noon meal eats 100%. returns to bed, resting eyes closed
--- NOTE | 2021-06-07 16:04 | NUR ---
FAMILY IN TO SEE PT. DC DISCUSSED FAMILY TRIES TO PREPARE FOR UPCOMING PLACEMENT. ALL QUESTIONS ANSWERED
--- NOTE | 2021-06-07 18:42 | NUR ---
PATIENT IN BED WATCHING TV. VITALS AND I&O'S CHARTED. FRESH WATER GIVEN. CALL LIGHT IN REACH. NO FURTHER NEEDS AT THIS TIME.
--- NOTE | 2021-06-07 19:49 | NUR ---
REPORT RECEIVED FROM DAY SHIFT RN. PT LYING IN BED RESTING IN BED WITH EYES CLOSED. RESPIRATIONS EVEN. CALL LIGHT IN REACH.
--- NOTE | 2021-06-07 21:00 | NUR ---
EVENING ASSESSMENT COMPLETE. SCHEDULED MEDS ADMINISTERED PER EMAR. PRN FOR PAIN ADMINISTERED FOR REPORTS OF HEADACHE. CRACKLES HEARD IN LUNG BASES. PT DENIES SOB. BLE EDEMA NOTED. PM CARES COMPLETE. PT DENIES QUESTIONS OR CONCERNS. CALL LIGHT IN REACH.
--- NOTE | 2021-06-08 00:25 | NUR ---
PT RESTING IN BED WITH EYES CLOSED, NO APPARENT DISTRESS.
--- NOTE | 2021-06-08 02:46 | NUR ---
URINAL EMPTIED. PT REPORTS HE IS RESTING WELL. DENIES NEEDS. CALL LIGHT IN REACH.
--- NOTE | 2021-06-08 05:45 | NUR ---
VS AND I&O COMPLETE. PT IN BED WITH EYES CLOSED. WISHES TO GO BACK TO SLEEP, PT LEFT TO REST. DENIES NEEDS. CALL LIGHT IN REACH.
--- NOTE | 2021-06-08 07:17 | NUR ---
pt awake resting in bed at shift exchange. states he's not ready to get up yet.
--- NOTE | 2021-06-08 09:00 | NUR ---
Notified by staff, Lisseth horowitz [facility] is here to evaluate pt for placement.
--- NOTE | 2021-06-08 09:42 | NUR ---
PT UP IN THE CHAIR FOR MORNING MEAL EATS 100%. REP FROM [facility] HERE AT THIS TIME INTERVIEWING PT. CALL LIGHT IN REACH DENIES NEEDS FROM THIS [employer] AND [employer] SALES REPRESENTATIVE
--- NOTE | 2021-06-08 10:47 | NUR ---
PT AWAKE IN ROOM. PT AMBULATED FROM CHAIR TO BED WITH SBA AND FWW. CALL LIGHT WITHIN REACH. NO FURTHER NEEDS AT THIS TIME.
--- NOTE | 2021-06-08 10:50 | NUR ---
Spoke with Gianni and he states he spoke with Lisseth and his room is ready. I will call and confirm. Called and spoke with Lisseth and she states his room is ready, she needs to confirm lynn as pt is saying he will not pay full lynn. She is also working with Joby his cousin, who is moving belongings in today. Took Cathy's cell phone number to the room and Gianni will call her.
--- NOTE | 2021-06-08 11:13 | NUR ---
PT CONTINUES UP IN THE CHAIR.
--- NOTE | 2021-06-08 11:30 | NUR ---
Spoke with Gianni and he states he is going to move into a studio apartment and not a one bedroom. Called and spoke with Lisseth, room is not ready, but will be tomorrow. She has not been able to obtain orders from Dr. Ferrera which were sent last week. Updated he is out of town per Dr. Estes. Lisseth states if Dr. Estes will sign, this gives her 30 days to get orders completed from PCP. Spoke with Dr. Estes and she agrees to sign.
--- NOTE | 2021-06-08 13:21 | NUR ---
PT RESTING IN BED ANTICIPATES MOVE TO [facility] AFTER HAVING INTERVIEW EARLIER.
--- NOTE | 2021-06-08 13:30 | NUR ---
Spoke with Cathy from [facility]. Updated pt I spoke with Dr. Estes and pt may stay another night if there is not a bed available until tomorrow. agreed to sign orders for placement as Dr. Ferrera his pcp is out of town. Cathy will send the orders to my fax.
--- NOTE | 2021-06-08 13:32 | NUR ---
PT AWAKE IN BED. CALL LIGHT WITHIN REACH. NO FURTHER NEEDS AT THIS TIME.
--- NOTE | 2021-06-08 14:36 | NUR ---
PT UP WORKING WITH P/T
--- NOTE | 2021-06-08 14:39 | NUR ---
Received orders and completed by Dr. Estes, orders faxed to [facility]. Will send dc summary tomorrow. Per Lisseth, if cousin can't transport, she will pick him up in the van.
--- NOTE | 2021-06-08 18:53 | NUR ---
PT HAS EVENING MEAL UP IN THE CHAIR RETURNS TO RESTING IN BED SOON AFTER. HAS A VISITOR AT THIS TIME CALL LIGHT IN REACH.
--- NOTE | 2021-06-08 19:38 | NUR ---
REPORT RECEIVED FROM DAY SHIFT RN. PT LYING IN BED RESTING WITH EYES CLOSED. RESPIRATIONS EVEN. CALL LIGHT IN REACH. WHITE BOARD UPDATED.
--- NOTE | 2021-06-08 20:30 | NUR ---
V/S AND I&O'SDONE. ORAL CARE DONE AND FACE WASH DONE BY PATIENT. WATER WITHOUT ICE REFILLED. VANILLA PUDDING PROVIDED.
--- NOTE | 2021-06-08 21:15 | NUR ---
EVENING ASSESSMENT COMPLETE. SCHEDULED MEDS ADMINISTERED PER EMAR. STOOL SOFTENER HELD DUE TO MULTIPLE BM'S TODAY. DENIES SOB. DENIES PAIN OR NAUSEA. BLE EDEMA NOTED. LEGS ELEVATED. FRESH WATER PROVIDED. PT DENIES QUESTIONS OR CONCERNS. CALL LIGHT IN REACH.
--- NOTE | 2021-06-09 00:53 | NUR ---
URINAL EMPTIED. PT SPILLED URINAL IN BED AND INCONTINENT OF STOOL. ASSISTED WITH DIANELYS CARE. BARRIER CREAM USED. CLEAN GOWN, LINENS, AND BRIEF PLACED. WARM BLANKET PROVIDED. PT DENIES FURTHER NEEDS. CALL LIGHT IN REACH.
--- NOTE | 2021-06-09 02:43 | NUR ---
PT RESTING IN BED WITH EYES CLOSED, NAD.
--- NOTE | 2021-06-09 06:43 | NUR ---
VS AND I&O COMPLETE. URINAL EMPTIED. PT SPILLED URINAL IN BED. INCONTINENT OF MEDIUM BROWN SOFT BM. DIANELYS CARE DONE. BARRIER CREAM APPLIED. PT ABLE TO HELP REPOSITION SELF IN BED. WARM BLANKET PROVIDED. NO FURTHER NEEDS.
--- NOTE | 2021-06-09 07:30 | NUR ---
Shift report received from SILVANO Valles, pt resting in bed w/ call light in reach. Eyes closed, RR even and unlabored.
--- NOTE | 2021-06-09 08:00 | NUR ---
Received a call from SILVANO Willett at [facility] She requests a POLST, signed orders for meds, updated notes. Called and informed all of this will be in the DC summary and med rec which will be completed when completes dc.
--- NOTE | 2021-06-09 09:00 | NUR ---
PT AWAKE IN ROOM. PT INDEPENDENT IN THE ROOM. WARM CLOTH GIVEN FOR FACE. PT PLANS ON A SHOWER BEFORE DC TODAY. CALL LIGHT WITHIN REACH. NO FURTHER NEEDS AT THIS TIME.
--- NOTE | 2021-06-09 09:17 | NUR ---
PT SITTING UP IN CHAIR WATCHING TV AND CALL LIGHT W/ IN REACH. MORNING ASSESMENT COMPLETED AND SCHEDULED MEDS GIVEN. PT DENIES ANY NEEDS AT THIS TIME.
--- NOTE | 2021-06-09 09:50 | NUR ---
It was my pleasure to visit with Mr. King this morning regarding his care in the hospital. When asked about his care, Mr. King remarked "My care is excellent, I cound ask for anything better." I also required with Mr. King since he will be discharging to [facility], as opposed to returning to his home. In regards to the communication with Case Management/Discharge Planning, Mr. King commented that the staff had been "Very helpful" he said they asked a lot of questions, and they "helped me decide what to do, they were are able to get answers to all of my questions as well." Mr. King also verbalized that the medications were being explained to him, and that he felt that the nurses did a "good job with everything." When I was in the room he verbalized no further questions or concerns regarding his care, his treatment plan, or his discharge.
--- NOTE | 2021-06-09 10:00 | NUR ---
Orders completed and faxed to Pradip with H&P, DC summary, Med rec, covid test. Spoke with Gianni and completed POLST form and he would like to remain a full code. Discussed HH PT and he would like to use [facility] from [facility]. Order and above chart faxed to Daphney. A nurse can see him tomorrow for admission.
--- NOTE | 2021-06-09 10:11 | NUR ---
PT AMBULATED TO SHOWER ROOM AND IS INDEPENDENT WITH SHOWER. THIS MARKETING CONTENT COORDINATOR IN ROOM TO MONITOR.
--- NOTE | 2021-06-09 10:45 | NUR ---
PT DRESSED IN OWN CLOTHES AND READY FOR DC. PT UP IN CHAIR WATCHING TV. CALL LIGHT WITHIN REACH. NO FURTHER NEEDS AT THIS TIME.
--- NOTE | 2021-06-09 10:45 | NUR ---
Spoke with Tamie she received orders, called pts cousin, Joby, he will pick pt up within the hour and transport to [facility]. Original copies of orders placed in envelope at the Med/Surg desk to go to [facility].
--- NOTE | 2021-06-09 11:11 | NUR ---
PT SITTING UP IN CHAIR WATCHING TV, W/ CALL LIGHT IN REACH. PT DENIES ANY NEEDS AT THIS TIME. REPORT CALLED TO SILVANO VIVAR AT [facility].
--- NOTE | 2021-06-09 13:05 | NUR ---
PT's nurse said PT would most likely like a visit because of him moving to assisted living today for the first time. I stopped by to visit but PT was receiving PT care.
== END 2021-06-09 11:45 | disposition home or self-care (01) | DRG 640 ==
LOC: ED 11:20 → MS 15:04
PROVIDERS: ADMIT Student in an Organized Health Care Education/Training Program; ATTEND Student in an Organized Health Care Education/Training Program
PROC: 30233N1 Transfusion of Nonautologous Red Blood Cells into Peripheral Vein, Percutaneous Approach (ICD-10-PCS; principal; 2021-06-09)
DX: E87.1 Hypo-osmolality and hyponatremia (principal); I50.33 Acute on chronic diastolic (congestive) heart failure; I25.10 Atherosclerotic heart disease of native coronary artery without angina pectoris; N40.0 Benign prostatic hyperplasia without lower urinary tract symptoms; K59.00 Constipation, unspecified; R29.6 Repeated falls; I11.0 Hypertensive heart disease with heart failure; Z20.822 Contact with and (suspected) exposure to COVID-19; I08.3 Combined rheumatic disorders of mitral, aortic and tricuspid valves; D63.8 Anemia in other chronic diseases classified elsewhere; M88.9 Osteitis deformans of unspecified bone; Z79.82 Long term (current) use of aspirin; Z79.02 Long term (current) use of antithrombotics/antiplatelets; Z95.5 Presence of coronary angioplasty implant and graft; Z95.1 Presence of aortocoronary bypass graft; Z85.828 Personal history of other malignant neoplasm of skin; Z90.89 Acquired absence of other organs; Z98.890 Other specified postprocedural states; Z87.891 Personal history of nicotine dependence; Z88.8 Allergy status to other drugs, medicaments and biological substances
CPT/HCPCS: 36430; 71045; 80048; 80053; 81001; 83735; 84100; 84295; 84300; 84484; 85025; 86850; 86900; 86901; 86922; 93005; 93010; 93306; 96374; 97110; 97112; 97116; 97162; 97166; 97530; 97535; 99285-25; C9803; J1650; J1940; J2405; J3475; J7030; J7040; P9016; U0003

== ENCOUNTER 2021-06-27 10:03 | Emergency (ER) | payer MEDICARE ==
[~2021-06-27] VITALS: Ht 182.9 cm; Wt 83.5 kg
[~2021-06-27 10:03] MED LIST changes: +AMLODIPINE BESYL5 MG PO; +DEXILANT30 MG PO; +FUROSEMIDE20 MG PO; +IRON325 M1 PO; +PANTOPRAZOLE SO40 MG PO; +POTASSIUM CHLO20 ME1 PO; +VITAMIN C500 M1 PO
--- OUTSIDE RECORDS SUMMARY | 2021-06-27 10:06 | XMS ---
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 \F\ [facility] PHONE: [phone] KVNG FRAIRE [facility] Current PHONE: [phone] HARISH VITALE Nurse Practitioner: Gerontology Current PHONE: [phone] NARINDER MARRERO Internal Medicine Current PHONE: [phone] Hugo has no Care Guidelines for this patient. [place] VISIT COUNT (12 MO.) 1 [facility] 6 [facility] TOTAL 7 NOTE: Visits indicate total known visits. 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 03/27/2021 15:59 [facility] TYPE: Emergency COMPLAINT: - LOC DIAGNOSES: - Syncope and collapse - Other 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 agent (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 - Personal history of nicotine dependence - Personal history of other malignant neoplasm of skin - Pure hypercholesterolemia, unspecified - Allergy status to other drugs, medicaments and biological substances - FDC (current) use of aspirin 11/23/2020 12:30 [facility] TYPE: Emergency DIAGNOSES: - Other nonspecific abnormal finding of lung field - Viral pneumonia, unspecified - Shortness of Breath - Pulmonary hypertension, unspecified - Pneumonia, unspecified organism - Hypoxemia - Weakness 11/17/2020 11:23 [facility] TYPE: Emergency COMPLAINT: - WEAKNESS, SOB DIAGNOSES: - Non-ST elevation (NSTEMI) myocardial infarction - FDC (current) use of aspirin - Weakness - Other 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 agent (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 - Pneumonia, unspecified organism - Pure hypercholesterolemia, unspecified - Personal history of nicotine dependence - Allergy status to other drugs, medicaments and biological substances 09/12/2020 14:11 [facility] TYPE: Emergency COMPLAINT: - WOUND CARE DIAGNOSES: - Encounter for surgical aftercare following surgery on the skin and subcutaneous tissue INPATIENT VISIT TRACKING (12 MO.) 06/03/2021 15:04 [facility] TYPE: Medical Surgical COMPLAINT: - HYPONATREMIA DIAGNOSES: - FDC (current) use of aspirin - Repeated falls - Presence of coronary angioplasty implant and graft - Benign prostatic hyperplasia without lower urinary tract symptoms - Hypertensive heart disease with heart failure - Acute on chronic diastolic (congestive) heart failure - Other specified postprocedural states - parking officer (current) 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 of aspirin - Presence of coronary angioplasty implant and graft - Personal history of other malignant neoplasm of skin - Allergy status to other drugs, medicaments and biological substances - Other specified postprocedural states - Osteitis deformans of unspecified bone - Osteitis deformans of unspecified bone - Presence of aortocoronary bypass graft - Anemia in other chronic diseases classified elsewhere - Personal history of nicotine dependence - Anemia in other chronic diseases classified elsewhere - Constipation, unspecified - Presence of aortocoronary bypass graft - Personal history of nicotine dependence - Acquired absence of other organs - FDC (current) use of antithrombotics/antiplatelets - Repeated falls - Combined rheumatic disorders of mitral, aortic and tricuspid valves - Atherosclerotic heart disease of kenaitze coronary artery without angina pectoris - Hypertensive heart disease with heart failure - Benign prostatic hyperplasia without lower urinary tract symptoms - Combined rheumatic disorders of mitral, aortic and tricuspid valves - Allergy status to other drugs, medicaments and biological substances - Personal history of other malignant neoplasm of skin - Constipation, unspecified - Hypo-osmolality and hyponatremia - Acquired absence of other organs - FDC (current) use of antithrombotics/antiplatelets - Atherosclerotic heart disease of kenaitze coronary artery without angina pectoris - Acute on chronic diastolic (congestive) heart failure 11/17/2020 18:19 [facility] TYPE: Cardiology DIAGNOSES: - Shortness of breath - NSTEMI - Presence of aortocoronary bypass graft - Hyperlipidemia, unspecified - Non-ST elevation (NSTEMI) myocardial infarction - Presence of coronary angioplasty implant and graft - Ischemic cardiomyopathy - Essential (primary) hypertension - Atherosclerosis of coronary artery bypass graft(s), unspecified, with other forms of angina pectoris [email or web address]
== END 2021-06-27 12:48 | disposition home or self-care (01) ==
LOC: ED 10:03
DX: H61.21 Impacted cerumen, right ear (principal); E78.00 Pure hypercholesterolemia, unspecified; Z85.828 Personal history of other malignant neoplasm of skin; Z87.891 Personal history of nicotine dependence; Z88.8 Allergy status to other drugs, medicaments and biological substances; Z79.899 Other long term (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; Z79.82 Long term (current) use of aspirin
CPT/HCPCS: 69209; 99282-25

== ENCOUNTER 2021-11-04 15:13 | Emergency (ER) | payer MEDICARE ==
[~2021-11-04] VITALS: Ht 182.9 cm; Wt 83.5 kg
[2021-11-04] MEDS ORDERED: TRAMADOL HCL50 MG PO (22:23)
== END 2021-11-04 22:55 | disposition home or self-care (01) ==
LOC: ED 15:13
DX: S32.591A Other specified fracture of right pubis, initial encounter for closed fracture (principal); W18.30XA Fall on same level, unspecified, initial encounter; E78.00 Pure hypercholesterolemia, unspecified; Z87.891 Personal history of nicotine dependence; Z88.8 Allergy status to other drugs, medicaments and biological substances; Z79.899 Other long term (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; Z79.82 Long term (current) use of aspirin; Z85.828 Personal history of other malignant neoplasm of skin
CPT/HCPCS: 72192; 73502; 99284-25

== ENCOUNTER 2022-04-15 09:06 | Inpatient (IN) | payer MEDICARE ==
[~2022-04-15] VITALS: Ht 182.9 cm; Wt 71.2 kg
[~2022-04-15 09:06] MED LIST changes: -ASPIR-LOW81 MG PO; +ASPIRIN81 MG PO; +OMEPRAZOLE40 MG PO; -PANTOPRAZOLE SO40 MG PO; +TRAMADOL HCL50 MG PO
[2022-04-15] MEDS ORDERED: ADVIL200 M1 PO (09:35)
[2022-04-15] MEDS ORDERED: ALLERGY MEDICAT25 M1 PO (09:49)
[2022-04-15] MEDS ORDERED: ALLEGRA-D 24 H1 EACH PO (09:50)
[2022-04-15] MEDS ORDERED: BENEFIBER1 EAC2 PO (09:51)
[2022-04-15] MEDS ORDERED: CLOBETASOL PROP50 ML TOP (09:53)
[2022-04-15] MEDS ORDERED: FUROSEMIDE20 MG PO (09:54)
--- NOTE | 2022-04-15 12:00 | NUR ---
REPORT RECIEVED FROM ACCOUNT SERVICE REPRESENTATIVE. PT TRANSPORTED VIA STRETCHER ON THE ASSOCIATE SOFTWARE APPLICATION ENGINEER TO CCU. PT ALERT AND ORIENTED UPON ARRIVAL. ABLE TO TRANSFER FROM STRETCHER TO BED WITH ONE PERSON ASSIST.
--- NOTE | 2022-04-15 12:45 | NUR ---
INTAKE ASSESSMENT COMPLETED. PT ALERT AND ORIENTED X4. FINE CRACKLES NOTED IN MID TO LOWER AIRWAYS UPON AUSCULTATION. PT HAS +3 EDEMA IN LEGS. EDEMA NOTED UP PAST THE PT KNEES. SPO2 = 93-95% ON ROOM AIR. RESPIRATIONS ARE EVEN AND UNLABORED AT REST. PT DENIES ANY PAIN OR DISCOMFORT. DISCUSSED PLAN OF CARE, MEDICATIONS, AND FLUID RESTRICTION. PT VERBALIZES AN UNDERSTANDING, ALL QUESTIONS ANSWERED. CALL LIGHT WITHIN REACH. WILL CONTINUE TO MONITOR.
--- NOTE | 2022-04-15 13:26 | NUR ---
TOOL ROOM LATHE OPERATOR IN ROOM AT THIS TIME.
--- NOTE | 2022-04-15 14:26 | NUR ---
PT RESTING IN BED. VISITOR AT BEDSIDE. CALL LIGHT WITHIN REACH. DENIES ANY NEEDS AT THIS TIME.
[2022-04-15] MEDS ORDERED: CORTIZONE-1028 GM TOP (14:42)
[2022-04-15] MEDS ORDERED: EAR DROPS15 ML AU (14:43)
[2022-04-15] MEDS ORDERED: COLACE100 MG PO (14:44)
[2022-04-15] MEDS ORDERED: BUTALB-ACETAMI1 EAC2 PO (14:45)
[2022-04-15] MEDS ORDERED: LIPO-FLAVONOID1 EACH PO (14:48)
[2022-04-15] MEDS ORDERED: FLONASE ALLERG9.9 ML NAS (14:49)
[2022-04-15] MEDS ORDERED: ANTACID200 MG PO (14:49)
[2022-04-15] MEDS ORDERED: GAVISCON 80-141 EACH PO (14:57)
[2022-04-15] MEDS ORDERED: LOPERAMIDE2 M1 PO (14:58)
[2022-04-15] MEDS ORDERED: LASIX20 MG PO (15:00)
[2022-04-15] MEDS ORDERED: XALATAN2.5 ML OU (15:06)
[2022-04-15] MEDS ORDERED: MELATONIN5 M2 PO (15:09)
[2022-04-15] MEDS ORDERED: MOVE FREE JOIN1 EACH PO (15:10)
[2022-04-15] MEDS ORDERED: ONDANSETRON HCL4 MG PO (15:12)
[2022-04-15] MEDS ORDERED: K-TAB ER20 MEQ PO (15:14)
[2022-04-15] MEDS ORDERED: RANEXA1000 MG PO (15:15)
[2022-04-15] MEDS ORDERED: TUSSIN DM COUG118 ML PO (15:16)
[2022-04-15] MEDS ORDERED: ANTIBIOTIC OINT28 GM TOP (15:17)
[2022-04-15] MEDS ORDERED: CALCIUM ANTACI320 MG PO (15:20)
--- NOTE | 2022-04-15 15:20 | NUR ---
MED REC COMPLETE
--- NOTE | 2022-04-15 15:50 | NUR ---
ASSESSMENT COMPLETED. PT HAD A SMALL AMOUNT OF LIQUID STOOL. TURNED PT ON LEFT SIDE AND DIGITALLY DISIMPACTED HARD STOOL FROM PT RECTUM. PT REPORTS FEELING BETTER AFTER DISIMPACTION. REESE CATHETER LEAKING SLIGHTLY AROUND URINARY MEATUS, BALLON STILL INTACT. WILL CONTINUE TO CLOSELY MONITOR.
--- NOTE | 2022-04-15 16:00 | NUR ---
DISCUSSED PTS URINE OUTPUT WITH DR. SOL. PLAN ESTABLISHED TO DC BUMEX DRIP AFTER PT DIURESES 4 LITERS, AND DRAW LABS AN HOUR AFTER BUMEX DRIP IS DC'D.
--- NOTE | 2022-04-15 16:45 | NUR ---
IV MAGNESIUM INFUSING ALONG WITH BUMEX DRIP. CALL LIGHT WITHIN REACH. WILL CONTINUE TO MONITOR.
--- NOTE | 2022-04-15 19:40 | NUR ---
REPORT RECEIVED FROM AMXWELL SCHAEFER. IN TO CHECK ON PT, DAUGHTER HAS JUST LEFT FOR THE NIGHT. PT IS SITTING UP IN BED AWAKE, DENIES NEEDS AT THIS TIME. IV MAGNESIUM IS INFUSING.
--- NOTE | 2022-04-15 20:23 | NUR ---
CALL FROM DR SOL TO DISCUSS NEW ORDERS, WILL RESTART BUMEX GTT UNTIL PT MAKES 1200ML URINE.
--- NOTE | 2022-04-15 23:19 | NUR ---
PT RESTING WITH EYES CLOSED, RESP EVEN AND UNLABORED ON ROOM AIR SPO2 95%.
--- NOTE | 2022-04-16 | NUR ---
IN TO ASSESS PT, PT HAS BEEN COMPLAINING OF PAIN WITH MAGNESIUM INFUSION, TRIED BOTH IV SITES AND RATE HAS BEEN SLOWED DOWN.
--- NOTE | 2022-04-16 01:15 | NUR ---
BUMEX GTT STOPPED PT HAS MADE 1200ML URINE SINCE IT WAS RESTARTED.
--- NOTE | 2022-04-16 01:45 | NUR ---
MAGNESIUM INFUSION COMPLETED, PT RESTING WITH EYES CLOSED, RESP EVEN AND UNLABORED, RR 15 AND SPO2 92% ON ROOM AIR. HR 70'S.
--- NOTE | 2022-04-16 04:15 | NUR ---
IN TO DO ASSESSMENT, PT STATES HE HAS BEEN ABLE TO SLEEP OFF AND ON AND WANTS TO TRY TO GET BACK TO SLEEP. REMAINS ON ROOM AIR, RR 14 AND SPO2 92%, HR 70'S.
--- NOTE | 2022-04-16 07:30 | NUR ---
REPORT RECEIVED, CARE OF PT ASSUMED AT THIS TIME. PT IN BED AWAKE. ASSISTED WITH REPOSITIONING IN BED FOR BREAKFAST.
--- NOTE | 2022-04-16 08:12 | NUR ---
MEDICATION ADMINSTRATION AND ASSESSMENT COMPLETED. CRACKLES STILL AUSCULTATED IN LOWER AND MID AIR DANIEL, WORSE ON THE LEFT. HEART RATE IRREGULAR BUT RATE CONTROLLED INT HE 70S AT REST. PLAN OF CARE FOR DAY ESTABLISHED. CALL LIGHT WITHIN REACH. WILL CONTINUE TO MONITOR.
--- NOTE | 2022-04-16 09:30 | NUR ---
BED BATH AND REESE CATHETER CARE COMPETED. PT SHAVED PER PT REQUEST. PT STOOD WITH 4WW AND TWO NURSE ASSIST TO USE STANDING SCALE. PT WEAK BUT STEADY ON FEET. PT NOW RESTING IN RECLINER. NOW UP IN CHAIR. CALL LIGHT AND PERSONAL BELONGINGS WITH REACH. WILL CONTINUE TO MONITOR.
--- NOTE | 2022-04-16 09:57 | NUR ---
DR SOL IN ROOM TO ASSESS PT. PLAN TO RESTART BUMEX DRIP FOR FURTHER DIURESES. ALL QUESTIONS ANSWERED. CALL LIGHT WITHIN REACH. WILL CONTINUE TO MONITOR.
--- NOTE | 2022-04-16 10:55 | NUR ---
ASSISTED PT FROM RECLINER TO BED. BUMEX BOLUS ADMINISTERED AND BUMEX DRIP NOW INFUSING. ORAL POTASSIUM WELL TOLERATED BY PT. CALL LIGHT WITHIN REACH. WILL CONTINUE TO MONITOR
--- NOTE | 2022-04-16 13:27 | NUR ---
ASSISTED PT WITH EATING LUNCH AND REPOSITIONED ON TO LEFT SIDE. CALL LIGHT WITHIN REACH. WILL CONTINUE TO MONITOR.
--- NOTE | 2022-04-16 13:49 | NUR ---
DISCUSSED PT URINE OUTPUT WITH DR SOL. INDIGO CALIX. PLAN ESTABLISHED TO MOVE PT TO MEDICAL FLOOR.
--- NOTE | 2022-04-16 15:02 | NUR ---
PT ARRIVES TO FLOOR FROM CCU VIA BED - AAO, PLEASENT. PT POSITIONED ON RIGHT SIDE FLOATED ON PILLOWS, STATES HE IS COMFORTABLE. ASSESSMENT COMPLETE. PT REQUESTS SHAMPOO CAP - PROVIDED. DENIES FURTHER NEEDS AT THIS TIME. CALL LIGHT IN REACH.
--- NOTE | 2022-04-16 17:47 | NUR ---
RN IN ROOM TO ADMINISTER SCHEDULED MEDS - PT SITTING IN BED WITH HOB ELEVATED EATING DINNER, SOME ASSISTANCE NEEDED DUE TO SIGHT. CALL LIGHT IN REACH.
--- NOTE | 2022-04-16 19:54 | NUR ---
BEDSIDE REPORT FROM JOSE SCHAEFER, PT RESTING IN BED, VISITOR AT BEDSIDE, PT MAY NEED PROTECTIVE DRESSING TO TAILBONE, SKIN IS INTACT BUT PT REPORTS GETS SORE, TURNING/REPOSITIONING PT Q2 HOURS.
--- NOTE | 2022-04-16 20:59 | NUR ---
PT RESTING IN BED, ALERT AND ORIENTED, HE REPORTS NO PAIN OR NAUSEA. HE REPORTS HE IS FEELING BETTER, BREATHING BETTER SINCE ADMIT. PT HAS NO REQUESTS OR CONCERNS AT THIS TIME. ASSESSMENT AND HS MEDS PASSED.
--- NOTE | 2022-04-16 23:28 | NUR ---
PT REPORTS HE HAS SWEAT AND IS WET UNDER HIM, PT IS NOTED TO HAVE DAMPNESS UNDER HIM THE REESE HAS LEAKED, NO LEAKED NOTED AT THIS TIME. LINENS CHANGED AND PT REPOSTIONED, PT REQUESTED MELATONIN AND CUP OF VANILLA PUDDING TO ASSIST IN HELPING HIM SLEEP. THIS IS PROVIDED, PT REQUESTED LOTION RUBBED ON HIS ABD AND BACK, HE FEELS HIS SKIN IS DRY, THIS IS PROVIDED, NO OTHER REQUESTS AT THIS TIME.
--- NOTE | 2022-04-17 04:36 | NUR ---
PT HAS SLEPT MOST OF SHIFT, HE HAS ALLEVYN DRESSING TO COCCYX, SKIN IS INTACT, PT REPORTS HE HAS METAL PLATE WHERE "TAIL BONE SHOULD BE" HE REPORTS THAT THIS ARE GETS SORE, SKIN IS INTACT DRESSING PLACED AFTER CLEANSING AREA WITH WOUND CLEANSER TO PROTECT AND CUSHION AREA. HE HAS NOT REPORTED ANY NAUSEA OR PAIN THIS SHIFT. HE HAS SMALL FORMED STOOL THIS SHIFT WHILE TURNING/REPOSITIONING. HIS BLE ARE ELEVATED ON PILLOW. HE HAS QUANTITY SUFFICIENT URINE OUT OF REESE OVER SHIFT. PT IS ALERT AND ORIETNED, NO NEW COCNERNS OVER SHIFT.
--- NOTE | 2022-04-17 07:50 | NUR ---
bedside report from assembler 1st shift, pt daily wt complete - now resting in bed with call light in reach.
--- NOTE | 2022-04-17 08:05 | NUR ---
PT SAT UP FOR MEAL- DENIES PAIN - EDEMA IN LEGS NOTICABLE PLUS 2 PT REPORTS IMPROVING. EYE SIGHT POOR - ASSISTED TO CUT UP MEAL.
--- NOTE | 2022-04-17 10:17 | NUR ---
IN WITH DR TO SEE PT, HE IS RESTING.
--- NOTE | 2022-04-17 11:29 | NUR ---
MEDICATIONS EXPLAINED TO PT, IV MG AND IV LASIX - PT HAS REESE.
--- NOTE | 2022-04-17 14:00 | EKG ---
[facility] [address] [place] [address] Signed Sinus rhythm with premature atrial complexes Left bundle branch block Abnormal ECG When compared with ECG of 03-JUN-2021 13:18, VA interval has decreased Confirmed by ELSIE SOL MD ([id number]) on 04/17/2022 1:59:53 PM Electronically Signed By: ELSIE SOL MD 04/17/22 1400 PATIENT NAME: JANET JOHNSON JR Electrocardiogram DATE OF : 33 PHYSICIAN: ELSIE SOL MD REPORT #: [id number] REPORT IS CONFIDENTIAL AND NOT TO BE RELEASED WITHOUT AUTHORIZATION
--- NOTE | 2022-04-17 14:01 | NUR ---
PT VITALS DONE, EMPTIED REESE, I&O'S CHARTED. PT IN BED RESTING. NOTHING NEEDED AT THIS TIME. CALL LIGHT IN REACH.
--- NOTE | 2022-04-17 16:07 | NUR ---
RESTING IN RM/BED, RESP RATE REG. EYES CLOSED, CALL LIGHT IN REACH.
--- NOTE | 2022-04-17 19:15 | NUR ---
REPORT RECEIVED FROM SILVANO MOULTON. pt UP IN CHAIR. PUDDING PROVIDED REQUESTED. CALL LIGHT IN REACH.
--- NOTE | 2022-04-17 19:15 | NUR ---
pt 1 person assist to ch, noticed that his cory area was damp on bed, gutierrez draining well - not sure if it is sweat or urine leak? linen changed - new ronald - pt skin intact.
--- NOTE | 2022-04-17 21:06 | NUR ---
pt AWAKE RESTING IN BED. ALERT AND ORIENTED. ASSESSMENT COMPLETE. FINE CRACKLES RLQ. pt DENIES SOB. VSS. REESE CARE COMPLETE. ATTENDS IN PLACE, pt REQUESTING IN CASE INCONTINENT OF STOOL. CALL LIGHT IN REACH. NO ADDITIONAL REQUESTS.
--- NOTE | 2022-04-17 22:05 | NUR ---
CALL LIGHT ANSWERED. pt C/O MORALEZ. PRN TYLENOL ADMINISTERED BY SILVANO DENNIS. pt RESTING IN BED. NO ADDITIONAL REQUESTS.
--- NOTE | 2022-04-17 22:34 | NUR ---
PT CALLED C/O OF HEADACHE. HX OF CHRONIC HEADACHES, PRN TYLENOL GIVEN. CALL LIGHT WITHIN REACH . WILL CONTINUE TO MONITOR.
--- NOTE | 2022-04-18 01:45 | NUR ---
CHECKED ON pt. RESTING IN BED AWAKE. COMPLAINS OF CONSTIPATION. REQUESTING BOWEL MEDICATIONS, NIO MEDICATIONS ORDERED. CALL LIGHT IN REACH.
--- NOTE | 2022-04-18 02:12 | NUR ---
PO MEDICATIONS ADMINISTERED FOR CONSTIPATION. pt STATES IT JUST FEELS HARD LIKE I CAN'T GET IT TO MOVE DOWN. ASSESSMENT COMPLETE. BOWEL TONES ACTIVE, ABD NON-TENDER WITH PALPATION, ABD SOFT. ASSISTED TO REPOSITION PILLOWS. PILLOWS UNDER LEGS. NO ADDITIONAL NEEDS.
--- NOTE | 2022-04-18 04:00 | NUR ---
CALL LIGHT ANSWERED. SBA TO RESTROOM WITH FWW. SMALL ROUND FORMED STOOL IN ATTENDS. pt INSTRUCTED TO PULL CALL LIGHT STRING WHEN FINISHED. REESE DRAINING CLEAR YELLOW URINE.
--- NOTE | 2022-04-18 04:20 | NUR ---
CALL LIGHT ANSWERED. SBA WITH FWW FROM RESTROOM. LARGE SOFT FORMED BM. pt STATES HE FEELS MUCH BETTER. STANDING WEIGHT 71.2 KG. BACK IN BED. VSS. REESE EMPTIED. WARM BLANKET PROVIDED. CALL LIGHT IN REACH.
--- NOTE | 2022-04-18 07:10 | NUR ---
Report received from Usha SCHAEFER. Pt resting in bed with eyes closed, even and unlabored RR, no needs identified at this time. Call light in reach. Will cont plan of care
--- NOTE | 2022-04-18 08:55 | NUR ---
Scheduled medications administered and assessment complete. Pt transfers up to chair for breakfast with 1PA with FWW, steady gait, requires assistance only with gutierrez catheter movement. Pt states feeling "sore in groin area", redness noted but no breakdown, catheter appears to be leaking, small spot urine noted on bed when pt stands. Pt states "I am ready to take this out before I go home". Discussed plan for discharge home to [facility]. Linens changed. VSS. OT in room to sara pt.
[2022-04-18] MEDS ORDERED: FUROSEMIDE20 MG PO (09:56)
[2022-04-18] MEDS ORDERED: POTASSIUM CHLO20 MEQ PO (09:59)
--- NOTE | 2022-04-18 10:19 | NUR ---
PATIENT UPDATE FAXED TO [facility] JOSELINE ALEXANDRE. PER DR. SOL PATIENT TO DISCHARGE TODAY, ORDERS AND RX OBTAINED. SPOKE TO SUZANNE AT [facility] FOR PATIENT TO RETURN. PATIENT HAS RECVD HOME HEALTH PT/OT FROM [facility] IN THE PAST. REFERRAL FAXED TO [facility].
--- NOTE | 2022-04-18 10:51 | NUR ---
Scheduled doses of lasix and K administered. Bowman removed WNL. IV removed WNL. Pt A+O, interactive with this RN.
--- NOTE | 2022-04-18 11:47 | NUR ---
Pt discharged with personal belongings in hand. Pt to take taxi to [employer]. All discharge teaching provided, pt has no questions.
== END 2022-04-18 11:45 | disposition home health service (06) | DRG 291 ==
LOC: ED 09:06 → CCU 11:21 → MS 11:21
PROVIDERS: ADMIT Internal Medicine; ATTEND Internal Medicine
DX: I11.0 Hypertensive heart disease with heart failure (principal); I50.33 Acute on chronic diastolic (congestive) heart failure; J96.01 Acute respiratory failure with hypoxia; Z66 Do not resuscitate; I25.10 Atherosclerotic heart disease of native coronary artery without angina pectoris; Z20.822 Contact with and (suspected) exposure to COVID-19; K21.9 Gastro-esophageal reflux disease without esophagitis; E78.5 Hyperlipidemia, unspecified; D53.9 Nutritional anemia, unspecified; N40.0 Benign prostatic hyperplasia without lower urinary tract symptoms; I08.3 Combined rheumatic disorders of mitral, aortic and tricuspid valves; E78.00 Pure hypercholesterolemia, unspecified; F32.A Depression, unspecified; D46.4 Refractory anemia, unspecified; Z85.828 Personal history of other malignant neoplasm of skin; Z87.01 Personal history of pneumonia (recurrent); Z95.1 Presence of aortocoronary bypass graft; Z88.8 Allergy status to other drugs, medicaments and biological substances; Z90.89 Acquired absence of other organs; Z98.890 Other specified postprocedural states; Z79.82 Long term (current) use of aspirin; Z79.899 Other long term (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
CPT/HCPCS: 36415; 71045; 80048; 80053; 82565; 82607; 82746; 83540; 83550; 83735; 83880; 84132; 84484; 84520; 85025; 87502; 93005; 93010; 93306; 97162; 97530; A9270; C9803; J1650; J1940; J3475; J3490; U0003

== ENCOUNTER 2022-05-23 08:45 | Emergency (ER) | payer MEDICARE ==
[~2022-05-23] VITALS: Ht 182.9 cm; Wt 71.1 kg
--- NOTE | ~2022-05-23 | EKG ---
[facility] [address] [place], [place] [address] Draft EK completed, results pending confirmation PATIENT NAME: JANET JOHNSON JR Electrocardiogram DATE OF : 33 PHYSICIAN: PRELIMINARY REPORT #: [id number] REPORT IS CONFIDENTIAL AND NOT TO BE RELEASED WITHOUT AUTHORIZATION
[~2022-05-23 08:45] MED LIST changes: +ADVIL200 M1 PO; +ALLEGRA-D 24 H1 EACH PO; +ALLERGY MEDICAT25 M1 PO; +ANTACID200 MG PO; +ANTIBIOTIC OINT28 GM TOP; +BENEFIBER1 EAC2 PO; +BUTALB-ACETAMI1 EAC2 PO; +CALCIUM ANTACI320 MG PO; +CLOBETASOL PROP50 ML TOP; +COLACE100 MG PO; +CORTIZONE-1028 GM TOP; +EAR DROPS15 ML AU; +FLONASE ALLERG9.9 ML NAS; +GAVISCON 80-141 EACH PO; +K-TAB ER20 MEQ PO; +LASIX20 MG PO; +LOPERAMIDE2 M1 PO; +MELATONIN5 M2 PO; +MOVE FREE JOIN1 EACH PO; +ONDANSETRON HCL4 MG PO; +POTASSIUM CHLO20 MEQ PO; +RANEXA1000 MG PO; +TUSSIN DM COUG118 ML PO; +XALATAN2.5 ML OU
== END 2022-05-23 17:23 | disposition home or self-care (01) ==
LOC: ED 08:45
DX: R53.1 Weakness (principal); N18.30 Chronic kidney disease, stage 3 unspecified; Z95.1 Presence of aortocoronary bypass graft; Z95.5 Presence of coronary angioplasty implant and graft; Z87.891 Personal history of nicotine dependence; Z88.8 Allergy status to other drugs, medicaments and biological substances; Z79.899 Other long term (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; Z79.82 Long term (current) use of aspirin; Z20.822 Contact with and (suspected) exposure to COVID-19
CPT/HCPCS: 36415; 71045; 80053; 81001; 84484; 85025; 87502; 93005; 93010; J7030; J7040; U0003